=== PATIENT | female | born 1985 | race Two or more races ===

== ENCOUNTER 2018-04-23 09:56 | Outpatient (CLI) | payer OTHER ==
[~2018-04-23 09:56] MED LIST: PRENATAL CAPLE1 EACH PO
== END 2018-04-23 10:04 | disposition home or self-care (01) ==
LOC: SONOGRAMA 09:56
DX: N60.11 Diffuse cystic mastopathy of right breast (principal)

== ENCOUNTER 2018-08-18 07:00 | Day surgery (SDC) | payer OTHER | END 2018-08-18 13:00 | disposition home or self-care (01) | LOC: CIR.AMB 07:00 | DX: O02.1 Missed abortion (principal); Z3A.01 Less than 8 weeks gestation of pregnancy ==

== ENCOUNTER → 2019-02-03 | Day surgery (SDC) | payer OTHER | END | disposition home or self-care (01) | LOC: CIR.AMB 06:38 | DX: O02.1 Missed abortion (principal); Z3A.01 Less than 8 weeks gestation of pregnancy ==

== ENCOUNTER → 2020-11-24 | Outpatient (CLI) | payer OTHER | END | disposition home or self-care (01) | LOC: MAMO-SONO 07:19 | PROVIDERS: ATTEND Radiology Diagnostic Radiology | DX: N63.0 Unspecified lump in unspecified breast (principal) ==

== ENCOUNTER → 2021-07-22 | Emergency (ER) | payer OTHER ==
[~2021-07-22] VITALS: Ht 172.7 cm; Wt 62.6 kg
== END | disposition home or self-care (01) ==
LOC: ER 15:42
DX: O26.851 Spotting complicating pregnancy, first trimester (principal); Z3A.01 Less than 8 weeks gestation of pregnancy

== ENCOUNTER 2022-02-20 14:15 | Inpatient (IN) | payer OTHER ==
[~2022-02-20] VITALS: Ht 172.7 cm; Wt 72.1 kg
== END 2022-03-02 16:11 | disposition home or self-care (01) | DRG 807 ==
LOC: LDR 02-28 11:33 → OB/GYN 03-01 00:02 → O/R 03-01 13:52 → SURG-SUITE 03-01 13:53 → LDR 03-13 14:15
PROVIDERS: ADMIT Obstetrics & Gynecology Maternal & Fetal Medicine; ATTEND Obstetrics & Gynecology Maternal & Fetal Medicine
PROC: 10E0XZZ Delivery of Products of Conception, External Approach (ICD-10-PCS; principal; 2022-02-28)
PROC: 0W8NXZZ Division of Female Perineum, External Approach (ICD-10-PCS; 2022-02-28)
PROC: 4A1HXCZ Monitoring of Products of Conception, Cardiac Rate, External Approach (ICD-10-PCS; 2022-02-28)
DX: O80 Encounter for full-term uncomplicated delivery (principal); Z37.0 Single live birth; Z3A.38 38 weeks gestation of pregnancy; Z20.822 Contact with and (suspected) exposure to COVID-19

== ENCOUNTER 2022-02-20 16:27 | Outpatient (CLI) | payer OTHER | END 2022-02-20 17:03 | disposition home or self-care (01) | LOC: NST 16:27 | PROVIDERS: ATTEND Obstetrics & Gynecology Maternal & Fetal Medicine | DX: Z34.83 Encounter for supervision of other normal pregnancy, third trimester (principal) ==

== ENCOUNTER 2022-02-28 10:53 | Outpatient (CLI) | payer OTHER | END 2022-02-28 11:32 | disposition still patient (30) | LOC: NST 10:53 | PROVIDERS: ATTEND Obstetrics & Gynecology | DX: Z34.83 Encounter for supervision of other normal pregnancy, third trimester (principal) ==

== ENCOUNTER 2023-08-08 12:38 | Outpatient (CLI) | payer OTHER | END 2023-08-08 14:43 | disposition home or self-care (01) | LOC: MAMO-SONO 12:38 | PROVIDERS: ATTEND Obstetrics & Gynecology Gynecology | DX: Z12.31 Encounter for screening mammogram for malignant neoplasm of breast (principal); N63.0 Unspecified lump in unspecified breast; N64.4 Mastodynia; N60.11 Diffuse cystic mastopathy of right breast ==

== ENCOUNTER 2024-07-26 08:21 | Outpatient (CLI) | payer OTHER | END 2024-07-26 08:51 | disposition home or self-care (01) | LOC: MAMO-SONO 08:21 | PROVIDERS: ATTEND Obstetrics & Gynecology | DX: N63.21 Unspecified lump in the left breast, upper outer quadrant (principal); N63.12 Unspecified lump in the right breast, upper inner quadrant; N93.0 Postcoital and contact bleeding ==

== ENCOUNTER 2025-03-30 12:50 | Outpatient (CLI) | payer OTHER | END 2025-03-30 13:13 | disposition home or self-care (01) | LOC: NST 12:50 | PROVIDERS: ATTEND Obstetrics & Gynecology Gynecology | DX: Z34.83 Encounter for supervision of other normal pregnancy, third trimester (principal) ==

== ENCOUNTER 2025-04-26 08:53 | Outpatient (CLI) | payer OTHER | END 2025-04-26 09:46 | disposition home or self-care (01) | LOC: NST 08:53 | PROVIDERS: ATTEND Obstetrics & Gynecology | DX: Z34.83 Encounter for supervision of other normal pregnancy, third trimester (principal) ==

== ENCOUNTER 2025-04-28 12:18 | Outpatient (CLI) | payer OTHER ==
[~2025-04-28] VITALS: Ht 172.7 cm; Wt 75.3 kg
[2025-04-28 12:10] VITALS: BP 114/77
[2025-04-28] MEDS ORDERED: SYNTHROID75 MCG PO (12:54)
[2025-04-28] MEDS ORDERED: PROTONIX40 MG PO (12:55)
[2025-04-28] MEDS ORDERED: ONDANSETRON HCL 2 MG/ML VIAL IV SCH (13:00)
[2025-04-28] MEDS ORDERED: DEXTROSE 5%-LACTATED RINGERS 1,000 ML IV SCH (13:00)
[2025-04-28] MEDS ORDERED: CHILDREN'S ASPI81 MG PO (13:22)
[2025-04-28 13:41] LABS: BASO % 0.2 % (0.1-1.2); EOS # 0.00 (0.04-0.54); EOS % 0.0 % (0.7-7.0); LYMPH # 0.18 (1.18-3.74); LYMPH % 3.7 % (19.3-53.1); MEAN PLATELET VOLUME 11.00 fl (9.4-12.4); MONO # 0.11 (0.24-0.82); MONO % 2.2 % (4.7-12.5); NEUT # 4.58 (1.56-6.13); NEUT % 93.7 % (34.0-71.1); RED CELL DISTRIBUTION WIDTH 12.5 % (11.6-14.4); URINE APPEARANCE Clear; URINE BILIRRUBIN Small (NEGATIVE); URINE BLOOD Negative; URINE COLOR Dark Yellow; URINE GLUCOSE Negative (NEGATIVE); URINE LEUKOCYTE Small; URINE NITRATE Negative; URINE PROTEIN 30 (NEGATIVE); URINE UROBILINOGEN 1.0 E.U./dl
[2025-04-28 13:45] LABS: URINE BACTERIA 1965.6 uL (0.0-1933); URINE EPITHELIAL CELLS 27.8 uL (0.0-38.8); URINE RBC 6.0 uL (0.0-20.8); URINE WBC 18.1 uL (0.0-23.2)
[2025-04-28 13:51] LABS: URINE CAST 0.87 uL (0.0-1.40); URINE KETONE 80 (NEGATIVE)
[2025-04-28 14:41] LABS: ALT/SGPT 60.0 U/L (12-78); AST/SGOT 42.0 U/L (15-37); BILIRUBIN TOTAL 0.82 mg/dL (0.3-1.2); BUN CREA RATIO 14.0 (7.0-25.0); CREATININE SERUM 0.57 mg/dL (0.55-1.02); GFR 117.47; GLOBULINA 3.5 G/DL (2.4-3.5); GLUCOSE FASTING 78.0 mg/dL (65-100); OSMOLALITY SERUM 275.0 MOSM/KG (275-295); TSH 0.566 uIU/mL (0.358-3.74)
[2025-04-28 14:48] LABS: COVID-19 AG NEGATIVE (NEGATIVE)
[2025-04-28 15:14] VITALS: BP 112/58
[2025-04-29] MEDS ORDERED: LEVOTHYROXINE SODIUM 75 MCG TABLET PO SCH (06:00)
== END 2025-04-28 18:23 | disposition home or self-care (01) ==
LOC: OBS/DEL 12:18 → LDR 12:18 → OB/GYN 12:18 → LDR 12:46 → OBS/DEL 18:23
PROVIDERS: Obstetrics & Gynecology; Obstetrics & Gynecology Maternal & Fetal Medicine; ATTEND Obstetrics & Gynecology Gynecology
DX: O26.893 Other specified pregnancy related conditions, third trimester (principal); Z3A.38 38 weeks gestation of pregnancy

== ENCOUNTER 2025-05-02 18:20 | Outpatient (CLI) | payer OTHER ==
[~2025-05-02 18:20] MED LIST changes: +CHILDREN'S ASPI81 MG PO; +PROTONIX40 MG PO; +SYNTHROID75 MCG PO
== END 2025-05-02 19:33 | disposition home or self-care (01) ==
LOC: NST 18:20
PROVIDERS: ATTEND Obstetrics & Gynecology Gynecology
DX: Z34.83 Encounter for supervision of other normal pregnancy, third trimester (principal)